=== PATIENT | male | born 1990 | race Caucasian/White ===

== ENCOUNTER → 2019-07-16 08:04 | Outpatient (CLI) | payer OTHER, SELFPAY ==
--- NOTE | 2019-07-16 | DI.MRI.S_ITS ---
PROCEDURE: MR SHOULDER LT W CON INDICATIONS: DISLOCATION OF LEFT SHOULDER TECHNIQUE: After the administration of 12 mL of dilute intra-articular Gadolinium contrast, oblique coronal T1 and T2 spin echo with fat saturation, oblique sagittal T1 spin echo with and without fat saturation, oblique sagittal T2 fast spin echo with fat saturation, axial T1 spin echo with fat saturation through the shoulder. COMPARISON: None. FINDINGS: Image quality: Diagnostic. Rotator cuff: No full-thickness or high-grade partial-thickness tear of the rotator cuff is identified. There is mild increased signal evident involving the supraspinatus and infraspinatus tendons without significant tearing. The subscapularis and teres minor tendons are intact. There is no significant atrophy of the rotator cuff muscles. Bones and bursae: Flattening of the posterior aspect of the femoral head is evident with an area of mild deformity and focal marrow edema. The adjacent glenoid is intact. However, there may be subtle marrow edema along the anteroinferior margin of the glenoid. No displaced clinic fractures are identified. No significant degenerative changes of the glenohumeral or acromio clavicular joints are evident. There is adequate distention of the glenohumeral joint with the injected contrast. A small intra-articular joint body is evident along the posterior aspect of the joint, measuring approximately 3 mm in diameter. Intra-articular joint bodies within the biceps tendon sheath also appear to be present. No significant fluid is contained within the subacromial subdeltoid bursa. No contrast extends into the bursa. Capsule and soft tissues: There is a small posterior labral tear identified that extends from at least the 9 o'clock position to the 6 o'clock position (image 14, series 6). There may be elevation of the periosteum within this location, suggesting a soft tissue Bankart. There also is a small superior labral tear that extends from the 11 o'clock position to the 1 o'clock position. No additional labral tears are identified. The superior, middle, and inferior glenohumeral ligaments are intact. The long head of the biceps tendon is normally positioned within the bicipital groove and is otherwise intact and unremarkable. There may be intra-articular joint bodies along the bicipital groove. IMPRESSION: 1. Mild supraspinatus and infraspinatus tendinopathy without significant tearing. 2. Hill-Sachs deformity of the humeral head is suggestive of a sustained shoulder dislocation. 3. Subtle bone contusion on the anteroinferior labrum without a bony Bankart. 4. Small anteroinferior labral tear is compatible with a soft tissue Bankart given elevation of the periosteum. 5. Small superior labral tear. 6. Small intra-articular joint bodies may represent cartilaginous joint bodies related to previous injury. Dictated by: Bib Pandya M.D. on 07/16/2019 at 14:56 Approved by: Bib Pandya M.D. on 07/16/2019 at 15:05
--- NOTE | 2019-07-16 | DI.RAD.S_ITS ---
PROCEDURE: FL SHOULDER INJECTION MR/CT LT INDICATIONS: DISLOCATION OF LEFT SHOULDER TECHNIQUE: The indications, alternatives, benefits, risks, and complications of the procedure were explained to the patient. Written informed consent was obtained and placed in the chart. The shoulder was examined fluoroscopically and a site for needle placement chosen for entry into the glenohumeral joint from an anterior approach. The skin was prepped and draped in a sterile fashion, and 1% lidocaine infiltrated from skin down to joint capsule. A spinal needle was inserted into the glenohumeral joint, and a small amount of iodinated contrast media injected to confirm intra-articular placement of the needle tip. This was followed by approximately 12 mL dilute solution of a gadolinium containing MR contrast agent. The needle was removed and a dressing was applied. The patient was given postprocedural instructions and sent to the MR suite for MR imaging. FINDINGS: A single fluoroscopic spot image demonstrates intra-articular location of injected iodinated contrast. IMPRESSION: Successful fluoroscopically guided administration of dilute Gadolinium solution into the shoulder joint for MR arthrogram. Dictated by: Alexy Trevino M.D. on 07/16/2019 at 10:03 Approved by: Alexy Trevino M.D. on 07/16/2019 at 10:03
== END ==
PROVIDERS: Visit Provider General Practice
DX: S43.005A Unspecified dislocation of left shoulder joint, initial encounter (principal); S43.492A Other sprain of left shoulder joint, initial encounter; X58.XXXA Exposure to other specified factors, initial encounter
CPT/HCPCS: 23350; 73222; 77002